=== PATIENT | female | born 1985 ===

== ENCOUNTER 2018-10-01 15:53 | Outpatient (CLI) | payer OTHER | END 2018-10-01 17:10 | disposition home or self-care (01) | LOC: LAB 15:53 | DX: J11.1 Influenza due to unidentified influenza virus with other respiratory manifestations (principal); R53.1 Weakness; J00 Acute nasopharyngitis [common cold] ==

== ENCOUNTER 2025-06-14 08:12 | Outpatient (CLI) | payer OTHER ==
[2025-06-14 09:36] LABS: BASO % 0.6 % (0.1-1.2); EOS # 0.13 (0.04-0.54); EOS % 2.1 % (0.7-7.0); LYMPH # 1.88 (1.18-3.74); LYMPH % 30.2 % (19.3-53.1); MEAN PLATELET VOLUME 11.00 fl (9.4-12.4); MONO # 0.49 (0.24-0.82); MONO % 7.9 % (4.7-12.5); NEUT # 3.68 (1.56-6.13); NEUT % 59.0 % (34.0-71.1); RED CELL DISTRIBUTION WIDTH 13.2 % (11.6-14.4)
[2025-06-14 10:42] LABS: ALT/SGPT 16.0 U/L (12-78); AST/SGOT 13.0 U/L (15-37); BILIRUBIN TOTAL 1.03 mg/dL (0.3-1.2); BUN CREA RATIO 14.0 (7.0-25.0); CREATININE SERUM 0.87 mg/dL (0.55-1.02); GFR 72.49; GLOBULINA 3.4 G/DL (2.4-3.5); GLUCOSE FASTING 83.0 mg/dL (65-100); LDH 132.0 U/L (84-246); OSMOLALITY SERUM 282.0 MOSM/KG (275-295); T4 FREE 0.91 NG/ML (0.76-1.46); TSH 3.4 uIU/mL (0.358-3.74)
[2025-06-17 10:35] LABS: ANTI THYROID PEROXIDASE 13 IU/mL (0-34)
== END 2025-06-14 08:24 | disposition home or self-care (01) ==
LOC: LAB 08:12
PROVIDERS: ATTEND Internal Medicine Hematology & Oncology
DX: E03.8 Other specified hypothyroidism (principal); Z83.2 Family history of diseases of the blood and blood-forming organs and certain disorders involving the immune mechanism; Z80.3 Family history of malignant neoplasm of breast; Z80.0 Family history of malignant neoplasm of digestive organs; D50.8 Other iron deficiency anemias; R79.9 Abnormal finding of blood chemistry, unspecified; I10 Essential (primary) hypertension; R74.02 Elevation of levels of lactic acid dehydrogenase [LDH]; K76.89 Other specified diseases of liver; D63.8 Anemia in other chronic diseases classified elsewhere; D51.1 Vitamin B12 deficiency anemia due to selective vitamin B12 malabsorption with proteinuria; E06.3 Autoimmune thyroiditis